=== PATIENT | female | born 1945 | race Caucasian/White ===

== ENCOUNTER 2023-06-01 08:02 | Day surgery (SDC) | payer OTHER ==
[~2023-06-01] VITALS: Ht 157.5 cm; Wt 87.1 kg
[2023-06-01] MEDS ORDERED: PROPOFOL 200MG/ 20ML VIAL (DIPRIVAN) IV ONE (10:00)
[2023-06-01] MEDS ORDERED: BENZOCAINE 20% 0.5mL UD SPRAY MM ONE (10:10)
[2023-06-01 13:00] VITALS: O2SAT 95
[2023-06-01 14:31] VITALS: BP_SYST 117; PULSE 77; RESP 18; TEMP 97.9
== END 2023-06-01 11:56 | disposition home or self-care (01) ==
LOC: SDS 08:02 → SMU 08:04 → SDS 11:56
PROVIDERS: ATTEND Internal Medicine
DX: R19.4 Change in bowel habit (principal); R19.7 Diarrhea, unspecified; K58.2 Mixed irritable bowel syndrome; K57.30 Diverticulosis of large intestine without perforation or abscess without bleeding; K64.8 Other hemorrhoids; J45.909 Unspecified asthma, uncomplicated; K21.9 Gastro-esophageal reflux disease without esophagitis; E11.9 Type 2 diabetes mellitus without complications; E78.5 Hyperlipidemia, unspecified; Z86.010 Personal history of colon polyps; Z87.891 Personal history of nicotine dependence; Z88.5 Allergy status to narcotic agent; Z88.0 Allergy status to penicillin; Z88.8 Allergy status to other drugs, medicaments and biological substances; Z79.890 Hormone replacement therapy; Z79.899 Other long term (current) drug therapy
CPT/HCPCS: 45380; 43239; 71045; 93005; 82948; 88305; 88312; 88313; G0378; J2704